=== PATIENT | female | born 1955 | race Caucasian/White ===

== ENCOUNTER 2018-01-03 23:44 | Observation (INO) ==
[2018-01-04 00:56] LABS: Basophils # 0.1 10*3/uL (0.0-0.2); Basophils % 1.2 % (0.0-0.8); Eosinophils # 0.1 10*3/uL (0.0-0.87); Eosinophils % 2.7 % (0.00-10.9); Hematocrit 43.1 VOL% (35.7-47.0); Hemoglobin 14.2 GM/DL (12.0-16.0); Lymphocytes # 1.7 10*3/uL (1.4-4.0); Lymphocytes % 32.8 % (21.3-54.2); Mean Corpuscular HGB Conc 32.9 GM/DL (32-36); Mean Corpuscular Hemoglobin 30 PG (27-34); Mean Corpuscular Volume 91.9 FL (87-102); Mean Platelet Volume 11.8 FL (9.6-12.0); Monocytes # 0.5 10*3/uL (0.11-0.8); Monocytes % 9.4 % (1.7-12.7); Neutrophils # 2.8 10*3/uL (1.4-7.4); Neutrophils % 53.9 % (38.7-73.9); Platelet Count 180 T/CUMM (130-400); Red Blood Count 4.69 MC/CUMM (3.8-5.5); White Blood Count 5.2 T/CUMM (4-12)
[2018-01-04] MEDS: NITROGLYCERIN SL 0.4 MG TABLET SL PRN ×2 (01:09→01:45)
[2018-01-04 01:15] LABS: Albumin 3.7 G/DL (3.4-5.0); Bilirubin,Total 0.9 MG/DL (0.2-1.0); Calcium 8.9 MG/DL (8.5-10.1); Potassium 3.6 MMOL/L (3.5-5.1); Total Protein 6.9 G/DL (6.4-8.3)
[2018-01-04] MEDS ORDERED: cloNIDine 0.1 MG TABLET PO STA (02:16)
[2018-01-04] MEDS ORDERED: MORPHINE 4 MG/1 ML VIAL IV PRN (03:30)
[2018-01-04] MEDS ORDERED: ACETAMINOPHEN 325 MG TABLET PO PRN (03:30)
[2018-01-04] MEDS ORDERED: ONDANSETRON 4 MG/2 ML VIAL IV PRN (03:30)
[2018-01-04] MEDS ORDERED: hydrALAZINE 20 MG/1 ML VIAL IV PRN (04:23)
[2018-01-04] MEDS ORDERED: SODIUM CHLORIDE 0.9% 1,000 ML IV SCH (04:30)
[2018-01-04] MEDS ORDERED: LACTATED RINGERS 1,000 ML IV SCH (05:00)
[2018-01-04 05:32] LABS: Risk Ratio 6.7; VLDL CHOLESTEROL 54.2 MG/DL
[2018-01-04] MEDS: ENOXAPARIN 40 MG/0.4 ML SYRINGE SUBCUT SCH (07:05)
[2018-01-04] MEDS ORDERED: ASPIRIN CHEW 81 MG TABLET PO ONE (08:55)
[2018-01-04] MEDS ORDERED: Biotin [Biotin] 5,000 MCG PO SCH (09:00)
[2018-01-04] MEDS: amLODIPine 10 MG TABLET PO SCH (09:02)
[2018-01-04] MEDS: METOPROLOL TARTRATE 50 MG TABLET PO SCH ×2 (09:03→20:46)
[2018-01-04] MEDS: PANTOPRAZOLE 40 MG TABLET PO SCH (09:28)
[2018-01-04] MEDS: ASPIRIN EC 81 MG TABLET PO SCH (11:50)
[2018-01-04] MEDS: LISINOPRIL 20 MG TABLET PO SCH (11:50)
[2018-01-04] MEDS: CYANOCOBALAMIN 500 MCG TABLET PO SCH (11:50)
[2018-01-04] MEDS: MULTIVITAMIN (CENTRUM) TABLET PO SCH (11:50)
[2018-01-04] MEDS: OMEGA 3 ACID ETHYL ESTERS 1 GM CAPSULE PO SCH (11:50)
[2018-01-04] MEDS ORDERED: ROSUVASTATIN 10 MG TABLET PO SCH (21:00)
[2018-01-05] MEDS: ENOXAPARIN 40 MG/0.4 ML SYRINGE SUBCUT SCH (03:16)
[2018-01-05 05:49] LABS: Basophils # 0.1 10*3/uL (0.0-0.2); Basophils % 1.1 % (0.0-0.8); Eosinophils # 0.3 10*3/uL (0.0-0.87); Eosinophils % 5.8 % (0.00-10.9); Hemoglobin 13.8 GM/DL (12.0-16.0); Immature Granulocytes % 0.2 %; Immature Granulocytes Absolute 0.01 #; Lymphocytes # 2.1 10*3/uL (1.4-4.0); Lymphocytes % 38.4 % (21.3-54.2); Mean Corpuscular HGB Conc 32.9 GM/DL (32-36); Mean Corpuscular Hemoglobin 30 PG (27-34); Mean Corpuscular Volume 91.1 FL (87-102); Mean Platelet Volume 11.3 FL (9.6-12.0); Monocytes # 0.6 10*3/uL (0.11-0.8); Monocytes % 10.7 % (1.7-12.7); Neutrophils # 2.4 10*3/uL (1.4-7.4); Neutrophils % 43.8 % (38.7-73.9); Platelet Count 164 T/CUMM (130-400); Red Blood Count 4.61 MC/CUMM (3.8-5.5); Red Cell Distribution Width 13.9 % (9.3-17.3); White Blood Count 5.5 T/CUMM (4-12)
[2018-01-05 06:46] LABS: Calcium 8.8 MG/DL (8.5-10.1); Osmolality,Calculated 281.1 MOS/KG (273-304)
[2018-01-05] MEDS: amLODIPine 10 MG TABLET PO SCH (09:08)
[2018-01-05] MEDS: CYANOCOBALAMIN 500 MCG TABLET PO SCH (09:08)
[2018-01-05] MEDS: METOPROLOL TARTRATE 50 MG TABLET PO SCH (09:08)
[2018-01-05] MEDS: LISINOPRIL 20 MG TABLET PO SCH (09:08)
[2018-01-05] MEDS: MULTIVITAMIN (CENTRUM) TABLET PO SCH (09:08)
[2018-01-05] MEDS: PANTOPRAZOLE 40 MG TABLET PO SCH (09:09)
[2018-01-05] MEDS: ASPIRIN EC 81 MG TABLET PO SCH (09:09)
[2018-01-05] MEDS: OMEGA 3 ACID ETHYL ESTERS 1 GM CAPSULE PO SCH (09:09)
[2018-01-05] MEDS ORDERED: CARVEDILOL 6.25 MG TABLET PO SCH ×2 (10:30→11:00)
[2018-01-05 12:03] VITALS: BP 143/95
== END 2018-01-05 14:20 | disposition home or self-care (01) ==
LOC: N.ED 23:44 → N.EDINP 23:44 → SUATTDRO 01-04 03:29 → N.EDINP 01-04 09:52 → N.4E 01-04 10:08
PROVIDERS: ADMIT Hospitalist; ATTEND Internal Medicine